=== PATIENT | female | born 1955 | race Caucasian/White ===

== ENCOUNTER → 2016-09-17 | Outpatient (REF) | payer MEDICARE ==
[2016-09-17 16:01] LABS: FREE T4 0.82 NG/DL (0.76-1.46)
== END ==
LOC: M LABDRAW1 15:25
PROVIDERS: ATTEND Internal Medicine Endocrinology, Diabetes & Metabolism
DX: E03.9 Hypothyroidism, unspecified (principal)

== ENCOUNTER → 2019-04-12 | Outpatient (REF) | payer MEDICARE, MEDICAID ==
[~2019-04-12] MED LIST: CYCL10TA; ESOM1CAP5; GLIP10TA18; INVO300T; LISI10TA4; LOVA20TA2; METF500T4; PIOG1TAB36; SERT-138; TRAM50TA2; TRUL10IN; ZOFR4TAB14 PO
[2019-04-12 12:33] LABS: BASO # 0.1 10^3/uL (0.0-0.2); BASO % 0.6 % (0.0-1.0); EOS # 0.3 10^3/uL (0.0-0.50); EOS % 3.3 % (0.0-3.0); HEMATOCRIT 41.3 % (36.0-47.0); HEMOGLOBIN 12.6 g/dl (12.0-15.5); LYMPH # 1.8 10^3/uL (1.5-4.5); LYMPH % 18.9 % (24.0-44.0); MEAN CORPUSCULAR HEMOGLOBIN 25.5 pg (27.0-33.0); MEAN CORPUSCULAR HGB CONC 30.5 g/dl (32.0-36.5); MEAN CORPUSCULAR VOLUME 83.4 fl (80.0-96.0); MONO # 0.7 10^3/uL (0.0-0.8); MONO % 7.7 % (0.0-5.0); NEUTROPHILS # 6.4 10^3/uL (1.8-7.7); NEUTROPHILS % 69.2 % (36.0-66.0); PLATELET COUNT, AUTOMATED 368 10^3/uL (150-450); RED BLOOD COUNT 4.95 10^6/uL (4.00-5.40); WHITE BLOOD COUNT 9.3 10^3/uL (4.0-10.0)
[2019-04-12 13:07] LABS: MALB URINE SIEMENS 34.7 MG/L; MAU/CREAT RATIO 46.8 MCG/MG (0.0-30.0)
[2019-04-12 13:14] LABS: ALBUMIN 3.6 GM/DL (3.2-5.2); ALT/SGPT 42 U/L (12-78); BILIRUBIN,TOTAL 0.3 MG/DL (0.2-1.0); BLOOD UREA NITROGEN 17 MG/DL (7-18); CALCIUM LEVEL 9.7 MG/DL (8.8-10.2); CARBON DIOXIDE LEVEL 28 MEQ/L (21-32); CHLORIDE LEVEL 103 MEQ/L (98-107); CHOLESTEROL LEVEL 196 MG/DL (<200); CREATININE FOR GFR 0.78 MG/DL (0.55-1.30); GLOMERULAR FILTRATION RATE > 60.0 (>45); GLUCOSE, FASTING 155 MG/DL (70-100); HDL CHOLESTEROL 70 MG/DL (>40); LDL CHOLESTEROL 105 MG/DL (<100); NON-HDL-C 126 MG/DL; POTASSIUM SERUM 4.3 MEQ/L (3.5-5.1); SODIUM LEVEL 140 MEQ/L (136-145); TOTAL PROTEIN 7.7 GM/DL (6.4-8.2); TRIGLYCERIDES LEVEL 107 MG/DL (<150)
== END ==
LOC: M LABDRAW1 09:37
PROVIDERS: ATTEND Internal Medicine Endocrinology, Diabetes & Metabolism
DX: E11.65 Type 2 diabetes mellitus with hyperglycemia (principal)

== ENCOUNTER → 2020-05-10 | Outpatient (REF) | payer MEDICARE, MEDICAID ==
[~2020-05-10] MED LIST changes: +CYCL-707; -CYCL10TA; +METF-838; -METF500T4
[2020-05-10 18:26] LABS: CREATININE, URINE 30.5 MG/DL; MALB URINE SIEMENS 16.9 MG/L; MAU/CREAT RATIO 55.4 MCG/MG (0.0-30.0)
== END ==
LOC: M LAB REF 15:45
PROVIDERS: ATTEND Nurse Practitioner Family
DX: E11.65 Type 2 diabetes mellitus with hyperglycemia (principal)

== ENCOUNTER → 2020-06-07 | Outpatient (CLI) | payer MEDICARE, MEDICAID ==
--- NOTE | 2020-06-12 08:20 | REP ---
RIGHT WRIST SERIES: 4 VIEWS. HISTORY: Disorder of bone. FINDINGS: Four views of the right wrist demonstrate overall normal mineralization. There is mild osteoarthritic spurring at the first carpal metacarpal articulation. There is joint space narrowing and sclerosis at the naviculomultangular articulation consistent with osteoarthritis. No erosive changes seen. IMPRESSION: Osteoarthritic changes most pronounced at the naviculomultangular articulation. MTDD
--- NOTE | 2020-06-12 08:21 | REP ---
RIGHT ANLKE SERIES: 4-VIEWS HISTORY: Disorder of bone. FINDINGS: Four views of the right ankle demonstrate and intact ankle mortise. There is plantar calcaneal spurring. Joint spaces are preserved. Periarticular soft tissues are unremarkable. IMPRESSION: Mild heel spurring. Otherwise, negative right ankle views. MTDD
--- NOTE | 2020-06-12 08:22 | REP ---
PELVIS BILATERAL HIP STUDY: 5-VIEWS HISTORY: Disorder of bone. COMPARISON: Right hip radiographs are from 10/09/2011. FINDINGS: Vascular calcifications noted in the iliac arteries bilaterally. The bony pelvic ring is intact. No sacral lesion is seen. Sacroiliac (SI) joints and symphysis pubis are intact. There is mild superior acetabular spurring bilaterally consistent with osteoarthritis. This is unchanged on the right. There is tendon insertion site spurring on the greater trochanters bilaterally, question enthesopathy. No erosive change is seen. IMPRESSION: Mild acetabular spurring consistent with osteoarthritis. Tendon insertion site spurring on the greater trochanters bilaterally. MTDD
== END ==
LOC: M LAB 10:49
PROVIDERS: ATTEND Internal Medicine
DX: M19.031 Primary osteoarthritis, right wrist (principal); M16.0 Bilateral primary osteoarthritis of hip; M77.31 Calcaneal spur, right foot

== ENCOUNTER → 2020-06-21 | Outpatient (CLI) | payer MEDICARE, MEDICAID ==
--- NOTE | 2020-06-27 13:46 | DEXA ---
AP SPINE L1 - L4 1.137 -0.5 1.1 LT FEMUR TOTAL 0.938 -0.6 0.7 LT NECK 0.812 -1.6 -0.1 RT FEMUR TOTAL 0.923 -0.7 0.6 RT NECK 0.817 -1.6 -0.1 TOTAL BODY TOTAL OTHER COMMENTS: Normal bone densitometry of the spine. There is low bone density of the hips. FOLLOW-UP: Recommendation for the next bone density exam: 2 years. [place]
== END ==
LOC: M WHC 12:28
PROVIDERS: ATTEND Internal Medicine
DX: M81.0 Age-related osteoporosis without current pathological fracture (principal); M25.40 Effusion, unspecified joint; M70.60 Trochanteric bursitis, unspecified hip

== ENCOUNTER 2020-06-28 11:25 | Outpatient (RCR) | payer MEDICARE, MEDICAID | END 2020-06-30 | LOC: M PT 11:25 | PROVIDERS: ATTEND Internal Medicine | DX: M70.60 Trochanteric bursitis, unspecified hip (principal) ==

== ENCOUNTER → 2021-05-17 | Outpatient (REF) | payer MEDICARE, MEDICAID ==
[~2021-05-17] MED LIST changes: +LISI10TA22; -LISI10TA4
[2021-05-17 18:18] LABS: CREATININE, URINE 52.7 MG/DL; MAU/CREAT RATIO 66.4 MCG/MG (0.0-30.0)
== END ==
LOC: M LAB REF 16:49
PROVIDERS: ATTEND Nurse Practitioner Family
DX: E11.65 Type 2 diabetes mellitus with hyperglycemia (principal)

== ENCOUNTER → 2021-11-29 | Outpatient (CLI) | payer MEDICARE, MEDICAID ==
[2021-11-29 10:44] LABS: GLOMERULAR FILTRATION RATE 58.9 (>45)
== END ==
LOC: M LAB 09:11
PROVIDERS: ATTEND Otolaryngology
DX: Z01.812 Encounter for preprocedural laboratory examination (principal)

== ENCOUNTER → 2021-12-03 | Outpatient (CLI) | payer MEDICARE, MEDICAID ==
[~2021-12-03] MED LIST changes: +ISOVUE-370 76% 100ML VIAL As Ordered ONE
== END ==
LOC: M RAD 12:55
PROVIDERS: ATTEND Otolaryngology
DX: H91.92 Unspecified hearing loss, left ear (principal)
CPT/HCPCS: 70481; Q9967

== ENCOUNTER → 2022-04-23 | Outpatient (CLI) | payer MEDICARE, MEDICAID ==
[~2022-04-23] MED LIST changes: +BASA100I SC; +CENT1TAB PO; +CLAR10CA3 PO; -CYCL-707; +CYCL-707 PO; -ISOVUE-370 76% 100ML VIAL As Ordered ONE; +JARD1TAB3 PO; -LISI10TA22; +LISI10TA22 PO; +LOVA40TA PO; -METF-838; +METF-838 PO; +MOVE1TAB PO; +OMEP40CA5 PO; +OZEM2INJ SC; -PIOG1TAB36; +PIOG1TAB36 PO; +QUET50TA4 PO; +SUPETAB44 PO; -TRAM50TA2; +TRAM50TA2 PO; +VENL75CA47 PO; +VITA100093 PO
== END ==
LOC: M LABSMTC 11:02
PROVIDERS: ATTEND Anesthesiology
DX: Z01.812 Encounter for preprocedural laboratory examination (principal); Z11.52 Encounter for screening for COVID-19

== ENCOUNTER 2022-04-28 07:35 | Day surgery (SDC) | payer MEDICARE, MEDICAID ==
[~2022-04-28] VITALS: Ht 154.9 cm; Wt 72.6 kg
[~2022-04-28 07:35] MED LIST changes: +BSS IRRIG/VANCO(10MG)/TOBRA(5MG)/EPINEPH(1:1000-0.5CC)500ML BAG-ORONLY IR ONE; +CEFUROXIME 1MG/0.1ML INTRACAMERAL INJ As Ordered ONE; +CYCLOPENTOLATE 1% OPHTH SOLN 2 ML BTL OS SCH; +LIDOCAINE 1% SDV 5ML VIAL As Ordered ONE; +LIDOCAINE 3.5 % 1ML OPHTH TOPICAL GEL OU ONE; +PHENYLEPHRINE 2.5% OPHTH SOL 2ML OS SCH; +PHENYLEPHRINE HCL 10 % OPHTH. SOL 5ML OS PRN; +TOBRAMYCIN 0.3% OPHTH SOLN 5 ML OS ONE; +TROPICAMIDE 1% OPHTH SOLN 2ML OS SCH
[2022-04-28] MEDS ORDERED: MIDAZOLAM INJ 2MG/2ML VIAL (J2250 PER 1MG) As Ordered ONE (09:34)
[2022-04-28] MEDS ORDERED: fentaNYL 100 MCG/2 ML INJECTION As Ordered ONE (09:34)
[2022-04-28 09:50] VITALS: BP 125/63
== END 2022-04-28 10:43 | disposition home or self-care (01) ==
LOC: M SDC 07:35
PROVIDERS: ATTEND Ophthalmology
DX: H25.12 Age-related nuclear cataract, left eye (principal); E11.9 Type 2 diabetes mellitus without complications; F32.A Depression, unspecified; E78.5 Hyperlipidemia, unspecified; I10 Essential (primary) hypertension; Z79.899 Other long term (current) drug therapy; Z79.84 Long term (current) use of oral hypoglycemic drugs; Z88.1 Allergy status to other antibiotic agents; Z88.8 Allergy status to other drugs, medicaments and biological substances
CPT/HCPCS: 66984; J0697; J2250; J3010; V2632

== ENCOUNTER → 2022-06-30 | Outpatient (REF) | payer MEDICARE, MEDICAID ==
[~2022-06-30] MED LIST changes: -BSS IRRIG/VANCO(10MG)/TOBRA(5MG)/EPINEPH(1:1000-0.5CC)500ML BAG-ORONLY IR ONE; -CEFUROXIME 1MG/0.1ML INTRACAMERAL INJ As Ordered ONE; -CYCLOPENTOLATE 1% OPHTH SOLN 2 ML BTL OS SCH; -LIDOCAINE 1% SDV 5ML VIAL As Ordered ONE; -LIDOCAINE 3.5 % 1ML OPHTH TOPICAL GEL OU ONE; -PHENYLEPHRINE 2.5% OPHTH SOL 2ML OS SCH; -PHENYLEPHRINE HCL 10 % OPHTH. SOL 5ML OS PRN; -TOBRAMYCIN 0.3% OPHTH SOLN 5 ML OS ONE; -TROPICAMIDE 1% OPHTH SOLN 2ML OS SCH
[2022-06-30 19:28] LABS: CREATININE, URINE 58.3 MG/DL; MALB URINE SIEMENS 33.8 MG/L; MAU/CREAT RATIO 57.9 MCG/MG (0.0-30.0)
== END ==
LOC: M LAB REF 18:16
PROVIDERS: ATTEND Nurse Practitioner Family
DX: E11.65 Type 2 diabetes mellitus with hyperglycemia (principal)

== ENCOUNTER → 2022-07-09 | Outpatient (CLI) | payer MEDICARE, MEDICAID | LOC: M LABSMTC 10:45 | PROVIDERS: ATTEND Anesthesiology | DX: Z01.812 Encounter for preprocedural laboratory examination (principal); Z20.822 Contact with and (suspected) exposure to COVID-19 ==

== ENCOUNTER 2022-07-14 09:17 | Day surgery (SDC) | payer MEDICARE, MEDICAID ==
[~2022-07-14] VITALS: Ht 154.9 cm; Wt 72.6 kg
[~2022-07-14 09:17] MED LIST changes: +BSS IRRIG/VANCO(10MG)/TOBRA(5MG)/EPINEPH(1:1000-0.5CC)500ML BAG-ORONLY IR ONE; +CEFUROXIME 1MG/0.1ML INTRACAMERAL INJ As Ordered ONE; +LIDOCAINE 1% SDV 5ML VIAL As Ordered ONE; +LIDOCAINE 3.5 % 1ML OPHTH TOPICAL GEL OU ONE; +MIDAZOLAM INJ 2MG/2ML VIAL (J2250 PER 1MG) As Ordered ONE; +PHENYLEPHRINE HCL 10 % OPHTH. SOL 5ML OD PRN; +fentaNYL 100 MCG/2 ML INJECTION As Ordered ONE
[2022-07-14] MEDS: CYCLOPENTOLATE 1% OPHTH SOLN 2 ML BTL OD SCH ×3 (09:40→09:50)
[2022-07-14] MEDS: TROPICAMIDE 1% OPHTH SOLN 2ML OD SCH ×3 (09:40→09:51)
[2022-07-14] MEDS: PHENYLEPHRINE 2.5% OPHTH SOL 2ML OD SCH ×3 (09:41→09:51)
[2022-07-14 10:20] VITALS: BP 112/56
== END 2022-07-14 10:40 | disposition home or self-care (01) ==
LOC: M SDC 09:17
PROVIDERS: ATTEND Ophthalmology
DX: H25.11 Age-related nuclear cataract, right eye (principal); I10 Essential (primary) hypertension; E78.00 Pure hypercholesterolemia, unspecified; E11.9 Type 2 diabetes mellitus without complications; K21.9 Gastro-esophageal reflux disease without esophagitis; M19.90 Unspecified osteoarthritis, unspecified site; J44.9 Chronic obstructive pulmonary disease, unspecified; F32.A Depression, unspecified; F41.9 Anxiety disorder, unspecified; Z87.442 Personal history of urinary calculi; Z88.1 Allergy status to other antibiotic agents; Z88.8 Allergy status to other drugs, medicaments and biological substances; Z79.899 Other long term (current) drug therapy; Z79.84 Long term (current) use of oral hypoglycemic drugs; Z79.891 Long term (current) use of opiate analgesic
CPT/HCPCS: 66984; J0697; J2250; J3010; V2632

== ENCOUNTER → 2023-08-04 | Outpatient (REF) | payer MEDICARE, MEDICAID ==
[~2023-08-04] MED LIST changes: -BSS IRRIG/VANCO(10MG)/TOBRA(5MG)/EPINEPH(1:1000-0.5CC)500ML BAG-ORONLY IR ONE; -CEFUROXIME 1MG/0.1ML INTRACAMERAL INJ As Ordered ONE; -LIDOCAINE 1% SDV 5ML VIAL As Ordered ONE; -LIDOCAINE 3.5 % 1ML OPHTH TOPICAL GEL OU ONE; -MIDAZOLAM INJ 2MG/2ML VIAL (J2250 PER 1MG) As Ordered ONE; -PHENYLEPHRINE HCL 10 % OPHTH. SOL 5ML OD PRN; -fentaNYL 100 MCG/2 ML INJECTION As Ordered ONE
[2023-08-04 16:22] LABS: MAU/CREAT RATIO 34.6 MCG/MG (0.0-30.0)
== END ==
LOC: M LAB REF 15:28
PROVIDERS: ATTEND Nurse Practitioner Family
DX: E11.65 Type 2 diabetes mellitus with hyperglycemia (principal)

== ENCOUNTER 2024-12-05 19:25 | Observation (INO) | payer MEDICAID, MEDICARE ==
[~2024-12-05] VITALS: Ht 154.9 cm; Wt 65.7 kg
[~2024-12-05 19:25] MED LIST changes: +ESOM1CAP20; -ESOM1CAP5; +GLIP-320; -GLIP10TA18
[2024-12-05 20:45] LABS: BASO # 0.1 10^3/uL (0.0-0.2); BASO % 0.3 % (0.0-1.0); EOS # 0.1 10^3/uL (0.0-0.5); EOS % 0.5 % (0.0-3.0); HEMATOCRIT 40.8 % (36.0-47.0); HEMOGLOBIN 13.1 g/dl (12.0-15.5); LYMPH # 2.1 10^3/uL (1.5-5.0); LYMPH % 7.8 % (24.0-44.0); MEAN CORPUSCULAR HEMOGLOBIN 28.2 pg (27.0-33.0); MEAN CORPUSCULAR HGB CONC 32.1 g/dl (32.0-36.5); MEAN CORPUSCULAR VOLUME 87.7 fl (80.0-96.0); MONO # 2.3 10^3/uL (0.0-0.8); MONO % 8.7 % (2.0-8.0); NEUTROPHILS # 21.7 10^3/uL (1.5-8.5); NEUTROPHILS % 81.8 % (36.0-66.0); PLATELET COUNT, AUTOMATED 504 10^3/uL (150-450); RED BLOOD COUNT 4.65 10^6/uL (4.00-5.40); WHITE BLOOD COUNT 26.5 10^3/uL (4.0-10.0)
[2024-12-05 20:53] LABS: PARTIAL THROMBOPLASTIN TIME 26.6 SECONDS (24.8-34.2); PROTHROMBIN TIME 13.5 SECONDS (12.5-14.5)
[2024-12-05 21:07] LABS: ETHYL ALCOHOL (ETHANOL) 0.009 % (0.000-0.010); LIPASE 41 U/L (12-53)
[2024-12-05 21:08] LABS: CK-MB VALUE MASS < 1.0 NG/ML (<3.6)
[2024-12-05 21:09] LABS: ALBUMIN 3.1 G/DL (3.2-5.2); ALKALINE PHOSPHATASE 139 U/L (35-104); ALT/SGPT 25 U/L (7.0-40); AST/SGOT 20 U/L (<34); BILIRUBIN,DIRECT 0.1 MG/DL (<0.4); BILIRUBIN,TOTAL 0.4 MG/DL (0.3-1.2); BLOOD UREA NITROGEN 41 MG/DL (9-23); CALCIUM LEVEL 9.2 MG/DL (8.3-10.6); CARBON DIOXIDE LEVEL 22 MMOL/L (20-31); CHLORIDE LEVEL 104 MMOL/L (98-107); CREATININE FOR GFR 0.97 MG/DL (0.55-1.30); GLOMERULAR FILTRATION RATE > 60.0 (>39); GLUCOSE, FASTING 337 MG/DL (74-106); POTASSIUM SERUM 4.5 MMOL/L (3.5-5.1); SODIUM LEVEL 138 MMOL/L (136-145); TOTAL PROTEIN 6.6 G/DL (5.7-8.2)
[2024-12-05 21:10] LABS: CPK CREATINE PHOSPHOKINASE 48 U/L (34-145); MB/CK RELATIVE INDEX 2.08 (< OR =4)
[2024-12-05 21:11] LABS: THYROID STIMULATING HORMONE 9.209 uIU/ML (0.55-4.78)
[2024-12-05 21:14] LABS: KETONE, URINE AUTO RFX NEGATIVE (NEGATIVE); LEUKOCYTE ESTERASE UR AUTO RFX NEGATIVE (NEGATIVE); NITRITE, URINE AUTO RFX NEGATIVE (NEGATIVE); RBC, URINE AUTO RFX 0 /HPF (0-3); SQUAM EPITHELIAL CELL UR AURFX 0 /HPF (0-6); WBC, URINE AUTO RFX 1 /HPF (0-3)
[2024-12-05] MEDS ORDERED: ISOVUE-370 76% 100ML VIAL As Ordered ONE (21:29)
[2024-12-05] MEDS: NS 500 ML IV ONE (21:30)
[2024-12-05] MEDS: NS (Normal Saline) 0.9% 1,000 ML IV SCH (21:30)
[2024-12-05 21:44] LABS: PHENCYCLIDINE URINE NEGATIVE (NEGATIVE)
[2024-12-05 21:45] LABS: AMPHETAMINES LEVEL URINE NEGATIVE (NEGATIVE); BARBITURATES URINE NEGATIVE (NEGATIVE); BENZODIAZEPINES URINE NEGATIVE (NEGATIVE); CANNABINOIDS URINE NEGATIVE (NEGATIVE); COCAINE METABOLITE URINE NEGATIVE (NEGATIVE); METHADONE URINE NEGATIVE (NEGATIVE); OPIATES URINE NEGATIVE (NEGATIVE)
[2024-12-05] MEDS: PIPERACILLIN/TAZOBACTAM SOD 3.375 GM in DEXTROSE 5% (D5W) ADV/MINI-BAG 50 ML IV ONE (22:56)
[2024-12-05] MEDS: [UNRECOGNIZED DRUG - OTHER] IV STA (23:38)
[2024-12-05] MEDS: NS 0.9% IV STA (23:38)
[2024-12-06] MEDS ORDERED: ALBU8.5H INH (01:10)
[2024-12-06] MEDS ORDERED: ACETAMINOPHEN 325 MG TAB PO PRN (01:10)
[2024-12-06] MEDS ORDERED: MAALOX 30 ML SUSP *UDC PO PRN (01:10)
[2024-12-06] MEDS ORDERED: MOM 30ML SUSPENSION UDC PO PRN (01:10)
[2024-12-06] MEDS ORDERED: ALBU1.25 INH (01:10)
[2024-12-06] MEDS ORDERED: QUET1TAB17 PO (01:10)
[2024-12-06] MEDS ORDERED: VENL150C43 PO (01:10)
[2024-12-06] MEDS ORDERED: VENL37.598 PO (01:10)
[2024-12-06] MEDS ORDERED: SEMA1PEN2 SC (01:10)
[2024-12-06] MEDS ORDERED: HOME MED LIST COMPLETE! XX SCH (01:15)
[2024-12-06] MEDS: metroNIDAZOLE 500 MG in IV 1 EA IV SCH (02:10)
[2024-12-06] MEDS: ONDANSETRON 4MG 2ML VIAL IV PRN (03:24)
[2024-12-06] MEDS: LACTATED RINGER'S 1000 ML IV ONE (03:24)
[2024-12-06] MEDS ORDERED: DEXTROSE 50% 50ML SYRINGE IV PRN (03:25)
[2024-12-06] MEDS ORDERED: ALBUTEROL 90 MCG/ACT 8GM HFA INHALER INH PRN (03:25)
[2024-12-06] MEDS ORDERED: GLUCOSE 4 GM CHEW PO PRN (03:25)
[2024-12-06] MEDS ORDERED: GLUCAGON INJ 1MG VIAL SC PRN (03:25)
[2024-12-06] MEDS: CYCLOBENZAPRINE 10MG TABLET PO SCH (03:46)
[2024-12-06] MEDS: QUEtiapine FUMARATE 12.5 MG HALF-TAB PO SCH (04:41)
[2024-12-06] MEDS: INSULIN LISPRO (NovoLOG) PER UNIT SC SCH ×2 (07:30→21:00)
[2024-12-06 07:32] LABS: HEMATOCRIT 37.8 % (36.0-47.0); HEMOGLOBIN 12.2 g/dl (12.0-15.5); MEAN CORPUSCULAR HEMOGLOBIN 28.1 pg (27.0-33.0); MEAN CORPUSCULAR HGB CONC 32.3 g/dl (32.0-36.5); MEAN CORPUSCULAR VOLUME 87.1 fl (80.0-96.0); RED BLOOD COUNT 4.34 10^6/uL (4.00-5.40); WHITE BLOOD COUNT 20.7 10^3/uL (4.0-10.0)
[2024-12-06 07:35] LABS: CPK CREATINE PHOSPHOKINASE 42 U/L (34-145); PLATELET COUNT, AUTOMATED 387 10^3/uL (150-450)
[2024-12-06 07:40] LABS: BLOOD UREA NITROGEN 31 MG/DL (9-23); CARBON DIOXIDE LEVEL 22 MMOL/L (20-31); CHLORIDE LEVEL 109 MMOL/L (98-107); CK-MB VALUE MASS < 1.0 NG/ML (<3.6); CREATININE FOR GFR 0.86 MG/DL (0.55-1.30); GLOMERULAR FILTRATION RATE > 60.0 (>39); GLUCOSE, FASTING 151 MG/DL (74-106); MB/CK RELATIVE INDEX 2.38 (< OR =4); POTASSIUM SERUM 4.5 MMOL/L (3.5-5.1); SODIUM LEVEL 141 MMOL/L (136-145)
[2024-12-06] MEDS: DOCUSATE SODIUM 100MG CAPSULE PO SCH (10:14)
[2024-12-06] MEDS: LORATADINE 10 MG TAB PO SCH (10:14)
[2024-12-06] MEDS: VENLAFAXINE **XR** 75MG CAPSULE PO SCH (10:14)
[2024-12-06] MEDS: VENLAFAXINE **XR** 37.5 MG CAPSULE PO SCH (10:14)
[2024-12-06] MEDS: traMADol 50 MG TAB PO SCH (10:14)
[2024-12-06] MEDS: PANTOPRAZOLE 40MG VIAL IV SCH (10:15)
[2024-12-06] MEDS: PIPERACILLIN/TAZOBACTAM SOD 3.375 GM in DEXTROSE 5% (D5W) ADV/MINI-BAG 50 ML IV SCH (10:18)
[2024-12-06 12:00] VITALS: BP 130/59; TEMP 97.9; O2SAT 95
[2024-12-06 12:14] LABS: C REACTIVE PROTEIN QUANTITATIV 2.79 MG/DL (<1.0)
[2024-12-06 12:25] LABS: PROCALCITONIN 0.11 ng/ml
[2024-12-06] MEDS ORDERED: RIVAROXABAN 10MG TAB (XARELTO) PO SCH (18:00)
[2024-12-06 19:38] VITALS: BP 111/55; TEMP 97.3; O2SAT 95
[2024-12-06] MEDS: LanTUS (INSULIN GLARGINE INJ) 1 UNITS/0.01 ML SC SCH (21:00)
[2024-12-06] MEDS: SENOKOT S TAB PO SCH (21:19)
[2024-12-06] MEDS: SIMVASTATIN 40 MG TAB PO SCH (21:19)
[2024-12-07] VITALS: BP_SYST 109; BP_SYST 85; BP_SYST 98; BP_DIAS 46; BP_DIAS 54; BP_DIAS 55
[2024-12-07 02:28] VITALS: BP 109/56
[2024-12-07 03:35] VITALS: BP 129/60; TEMP 97.3; O2SAT 96
[2024-12-07 06:17] LABS: BASO # 0.1 10^3/uL (0.0-0.2); BASO % 0.4 % (0.0-1.0); EOS # 0.3 10^3/uL (0.0-0.5); EOS % 2.1 % (0.0-3.0); HEMATOCRIT 35.4 % (36.0-47.0); HEMOGLOBIN 11.4 g/dl (12.0-15.5); LYMPH # 2.1 10^3/uL (1.5-5.0); LYMPH % 17.7 % (24.0-44.0); MEAN CORPUSCULAR HEMOGLOBIN 28.3 pg (27.0-33.0); MEAN CORPUSCULAR HGB CONC 32.2 g/dl (32.0-36.5); MEAN CORPUSCULAR VOLUME 87.8 fl (80.0-96.0); MONO # 1.1 10^3/uL (0.0-0.8); MONO % 9.1 % (2.0-8.0); NEUTROPHILS # 8.4 10^3/uL (1.5-8.5); NEUTROPHILS % 70.3 % (36.0-66.0); PLATELET COUNT, AUTOMATED 327 10^3/uL (150-450); RED BLOOD COUNT 4.03 10^6/uL (4.00-5.40)
[2024-12-07 06:38] LABS: BLOOD UREA NITROGEN 16 MG/DL (9-23); CALCIUM LEVEL 8.3 MG/DL (8.3-10.6); CARBON DIOXIDE LEVEL 24 MMOL/L (20-31); CHLORIDE LEVEL 109 MMOL/L (98-107); CREATININE FOR GFR 0.77 MG/DL (0.55-1.30); GLOMERULAR FILTRATION RATE > 60.0 (>39); GLUCOSE, FASTING 140 MG/DL (74-106); POTASSIUM SERUM 4.2 MMOL/L (3.5-5.1); SODIUM LEVEL 141 MMOL/L (136-145)
[2024-12-07 06:41] LABS: THYROID STIMULATING HORMONE 2.406 uIU/ML (0.55-4.78)
[2024-12-07] MEDS: ENOXAPARIN 40MG/0.4ML SYRINGE (J1650 PER 10MG) SC SCH (08:40)
[2024-12-07 08:42] VITALS: BP 113/57
[2024-12-07 12:00] VITALS: BP 105/46; TEMP 97.3; O2SAT 95
[2024-12-07] MEDS ORDERED: SENN-122 PO (13:25)
[2024-12-07] MEDS ORDERED: CEFD1CAP9 PO (13:28)
[2024-12-07] MEDS ORDERED: METR-265 PO (13:28)
== END 2024-12-07 16:10 | disposition home health service (06) ==
LOC: M ED 19:25 → M ED INP 19:26 → UNDOADMOB 12-06 01:06 → M ED INP 12-06 01:07 → M MS4PR 12-06 11:34
PROVIDERS: ADMIT Student in an Organized Health Care Education/Training Program; ATTEND Student in an Organized Health Care Education/Training Program
DX: K52.9 Noninfective gastroenteritis and colitis, unspecified (principal); A41.9 Sepsis, unspecified organism; K76.0 Fatty (change of) liver, not elsewhere classified; E11.9 Type 2 diabetes mellitus without complications; E78.5 Hyperlipidemia, unspecified; F39 Unspecified mood [affective] disorder; M19.90 Unspecified osteoarthritis, unspecified site; G89.29 Other chronic pain; K21.9 Gastro-esophageal reflux disease without esophagitis; I10 Essential (primary) hypertension; J44.9 Chronic obstructive pulmonary disease, unspecified; D72.829 Elevated white blood cell count, unspecified; R74.02 Elevation of levels of lactic acid dehydrogenase [LDH]; R00.0 Tachycardia, unspecified; R53.81 Other malaise; Z87.891 Personal history of nicotine dependence; Z88.8 Allergy status to other drugs, medicaments and biological substances; Z88.1 Allergy status to other antibiotic agents; Z79.899 Other long term (current) drug therapy; Z79.84 Long term (current) use of oral hypoglycemic drugs
CPT/HCPCS: 36415; 71045; 74177; 76705; 80048; 80076; 80307; 81001; 82077; 82550; 82553; 83605; 83690; 84145; 84439; 84443; 84484; 85025; 85027; 85610; 85730; 86140; 87040; 93005; 93041; 94760; 96365; 96366; 96372; 96375; 96376; 97116; 97161; 97530; 99285; G0378; J1650; J1815; J1836; J2405; J2470; J2543; Q9967